=== PATIENT | female | born 1975 | race Caucasian/White ===

== ENCOUNTER 2018-08-17 15:02 | Emergency (ER) | payer BC ==
[~2018-08-17] VITALS: Ht 157.5 cm; Wt 104.3 kg
[~2018-08-17 15:02] MED LIST: ACET-93 PO; ALPR0.5T7 PO; HYDR-3730 PO; LORA10TA7 PO; MTF500T PO; NITR-65 PO; ONDA4TAB8 PO; PANT40TA3 PO; TRAM300T17 PO; TRM50T PO
--- OUTSIDE RECORDS SUMMARY | 2018-08-17 15:07 | XMS REPORT | Clinical Summary ---
Author Author [facility] Organization [facility] Address Unknown Phone Unavailable Care Team Providers Care Boat Cleaner Name Role Phone PCP Unavailable Allergies Not on File Current Medications Not on file Active Problems Not on file Social History Tobacco Use Types Packs/Day Years Used Date Never Assessed Sex Assigned at Date Recorded Not on file Last Filed Vital Signs Not on file Plan of Treatment Not on file Results Not on filefrom Last 3 Months
--- OUTSIDE RECORDS SUMMARY | 2018-08-17 15:07 | XMS REPORT | Clinical Summary ---
Author Author [facility] Organization [facility] Address Unknown Phone Unavailable Care Team Providers Care Pan Tank Worker Name Role Phone Dung Lyn MD Unavailable Katty Tony RN Unavailable Unavailable Eben Irizarry MD PCP Garrett Hammonds RN Unavailable Unavailable Nicole Culp APRN Unavailable Monica Escudero RN Unavailable Unavailable Jennifer Elmore RN Unavailable Unavailable Source Comments Some departments are not documenting in the electronic medical record. If you do not see the information that you expected, contact Release of Information in the Health Information Management department at [phone] for further assistance in locating additional records.[facility] Allergies Comments Active Allergy Reactions Severity Noted Date Penicillins HIVES 02/08/2013 Tramadol SEIZURES 02/08/2013 Medications End Date Status Medication Sig Dispensed Refills Start Date Active metFORMIN (GLUCOPHAGE) Take 500 mg 0 500 mg tablet by mouth twice daily with meals. Active pantoprazole DR Take 40 mg by 0 (PROTONIX) 40 mg tablet mouth every morning. Active simvastatin (ZOCOR) 20 mg Take 20 mg by 0 tablet mouth at bedtime daily. Active acetaminophen (TYLENOL) Take 1,000 mg 0 500 mg tablet by mouth every 6 hours as needed. Active hydrocortisone 1 % Apply to 0 topical ointment affected area twice daily. Rash Active docusate (COLACE) 100 mg Take 1 Cap by 60 Cap 0 capsule mouth twice 4 daily. 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 Last Filed Vital Signs Time Taken Vital Sign Reading 09/03/2014 8:36 AM CDT Blood Pressure 118/78 09/03/2014 8:36 AM CDT Pulse 79 12/30/2013 2:48 PM CDT Temperature 36.9 C (98.4 F) - Respiratory Rate - 12/30/2013 2:48 PM CDT Oxygen Saturation 97% - Inhaled Oxygen - Concentration 09/03/2014 8:36 AM CDT Weight 112.5 kg (248 lb) 09/03/2014 8:36 AM CDT Height 160 cm (5' 3") 09/03/2014 8:36 AM CDT Body Mass Index 43.93 Plan of Treatment Health Maintenance Due Date Last Done Comments PHYSICAL (COMPREHENSIVE) 08/28/1982 EXAM HIV SCREENING 08/28/1990 DTAP/TDAP VACCINES (1 - 08/28/1993 Tdap) CERVICAL CANCER SCREENING 08/28/2005 BREAST CANCER SCREENING 2015 INFLUENZA VACCINE 12/14/2018 Results Not on filefrom Last 3 Months Insurance Type Payer Benefit Subscriber ID Effective Phone Address Plan / Dates Group PPO BCBS GURPREET BCBS GURPREET xxxxxxxxxxxxxxx 2014- [facility] Present BLUE Advance Directives Patient has advance care planning documents, and code status on file. For more information, please contact: [facility] [address] [place] [address] Date Inactivated Comments Code Status Date Activated 12/30/2013 6:21 PM Full Code 12/28/2013 3:55 PM Provider has discussed Code Status Yes w/Patient or Family? 04/02/2013 2:07 PM Full Code 03/30/2013 7:52 PM Provider has discussed Code Status No, discussion not w/Patient or Family? necessary based on Dx
--- OUTSIDE RECORDS SUMMARY | 2018-08-17 15:08 | XMS REPORT | Continuity of Care Document ---
Author Author [facility] Organization [facility] Address Unknown Phone Unavailable Care Team Providers Care Armhole Presser Name Role Phone TIANAED PISANO FLOR PP Insurance Providers Payer Name Policy Number Subscriber Name Relationship [facility] [id number] Michelle Soto 01 Self / Same As Patient Advance Directives Directive Response Recorded Date Advance Directives N 09/09/12 4:57pm Problems No Known Problems or Medical conditions. Social History History Response Recorded Date/Time Alcohol Use Denies Use 09/09/12 4:57pm Recreational Drug Use N 09/09/12 4:57pm Allergies, Adverse Reactions, Alerts Allergen Type Severity Reaction Last Updated Penicillins Allergy RASH 09/09/12 Medications Medication Dose Units Route Sig Qty Days Tramadol HCl (Ultram) 100 Mg PO BID 10 Tramadol Hcl 300 Mg PO Metformin HCl (Metformin 500 Mg) 1 Each PO BID WITH MEALS Response Recorded Date/Time Status not known Unknown Results Test Date Result Interp. Ref. Range Alanine Aminotransferase (ALT/SGPT) September 09, 2012 4:59pm 44 U/L N 30-65 Albumin September 09, 2012 4:59pm 4.2 G/DL N 3.4-5.0 Alkaline Phosphatase September 09, 2012 4:59pm 138 U/L H 50-136 Aspartate Amino Transf (AST/SGOT) September 09, 2012 4:59pm 21 U/L N 15-37 BUN/Creatinine Ratio September 09, 2012 4:59pm 10 - Basophils # (Auto) September 09, 2012 4:59pm 0.0 10^3/uL N 0.0-0.1 Basophils (%) (Auto) September 09, 2012 4:59pm 0 % N 0-10 Blood Urea Nitrogen September 09, 2012 4:59pm 10 MG/DL N 7-18 Calcium Level September 09, 2012 4:59pm 8.5 MG/DL N 8.5-10.1 Carbon Dioxide Level September 09, 2012 4:59pm 21 MMOL/L N 21-32 Chloride Level September 09, 2012 4:59pm 100 MMOL/L L 101-110 Creatinine September 09, 2012 4:59pm 1.0 MG/ DL N 0.6-1.3 Eosinophils # (Auto) September 09, 2012 4:59pm 0.2 10^3/uL N 0.0-0.3 Eosinophils (%) (Auto) September 09, 2012 4:59pm 2 % N 0-10 Glucose Level September 09, 2012 4:59pm 102 MG/DL N 74-106 Hematocrit September 09, 2012 4:59pm 43 % N 35-52 Hemoglobin September 09, 2012 4:59pm 14.1 G/ DL N 11.5-16.0 Lymphocytes # (Auto) September 09, 2012 4:59pm 4.7 X 10^3 H 1.0-4.0 Lymphocytes (%) (Auto) September 09, 2012 4:59pm 47 % H 12-44 Mean Corpuscular Hemoglobin September 09, 2012 4:59pm 28 PG N 25-34 Mean Corpuscular Hemoglobin Concent September 09, 2012 4:59pm 33 G/DL N 32-36 Mean Corpuscular Volume September 09, 2012 4:59pm 84 FL N 80-99 Mean Platelet Volume September 09, 2012 4:59pm 9.4 FL N 7.4-10.4 Monocytes # (Auto) September 09, 2012 4:59pm 0.8 X 10^3 N 0.0-1.0 Monocytes (%) (Auto) September 09, 2012 4:59pm 7 % N 0-12 Neutrophils # (Auto) September 09, 2012 4:59pm 4.4 X 10^3 N 1.8-7.8 Neutrophils (%) (Auto) September 09, 2012 4:59pm 44 % N 42-75 Platelet Count September 09, 2012 4:59pm 457 10^3/uL H 130-400 Potassium Level September 09, 2012 4:59pm 3.8 MMOL/L N 3.6-5.0 Red Blood Count September 09, 2012 4:59pm 5.12 10^6/uL N 4.35-5.85 Red Cell Distribution Width September 09, 2012 4:59pm 13.8 % N 10.0-14.5 Sodium Level September 09, 2012 4:59pm 136 MMOL/L N 135-145 Total Bilirubin September 09, 2012 4:59pm 0.2 MG/DL N 0.0-1.0 Total Protein September 09, 2012 4:59pm 8.3 G/DL H 6.4-8.2 Ur Tricyclic Antidepressants Screen September 09, 2012 7:09pm NEGATIVE - Urine Amphetamines Screen September 09, 2012 7:09pm NEGATIVE - Urine Barbiturates Screen September 09, 2012 7:09pm NEGATIVE - Urine Benzodiazepines Screen September 09, 2012 7:09pm NEGATIVE - Urine Cocaine Screen September 09, 2012 7:09pm NEGATIVE - Urine Methamphetamines Screen September 09, 2012 7:09pm NEGATIVE - Urine Opiates Screen September 09, 2012 7:09pm NEGATIVE - Urine Phencyclidine Screen September 09, 2012 7:09pm NEGATIVE - Urine Propoxyphene Screen September 09, 2012 7:09pm NEGATIVE - White Blood Count September 09, 2012 4:59pm 10.1 10^3/uL N 4.3-11.0 Estimat Glomerular Filtration Rate September 09, 2012 4:59pm > 60 - Urine Oxycodone Screen September 09, 2012 7:09pm NEGATIVE - Urine Methadone Screen September 09, 2012 7:09pm NEGATIVE - Urine Cannabinoids Screen September 09, 2012 7:09pm NEGATIVE - Urine Buprenorphine September 09, 2012 7:09pm NEGATIVE - Encounters Encounter Location Date/Time Departed Emergency Room [facility] 4:53pm
--- OUTSIDE RECORDS SUMMARY | 2018-08-17 15:08 | XMS REPORT | Continuity of Care Document ---
Author Author [facility] Organization [facility] Address Unknown Phone Unavailable Allergies Active Description Code Type Severity Reaction Onset Reported/Identified Relationship to Patient Clinical Status Yes PENICILLINS SEVERE DERMATOLOGICAL - SANTI Yes Penicillins [id number] Drug Allergy Unknown RASH 03/28/2015 Yes tramadol [id number] Drug Allergy Unknown SEIZURE 03/28/2015 Medications Medication Packaging Start Date Stop Date Route Dosage Sig TETANUS,DIPTH,PERT ADULT INJ 0 (ADACEL SYRINGE) ml 07/08/2017 07/08/2017 ONCE&1042 AMOX-CLAV 875/125 TAB 875 MG-125MG (AUGMENTIN) TAB 07/08/2017 07/08/2017 ONCE&1101 KETOROLAC VIAL INJ 60 MG/2CC (TORADOL VIAL) MG 07/08/2017 07/08/2017 ONCE&1201 AMOX-CLAV 875/125 TAB 875 MG-125MG (AUGMENTIN) TAB 07/08/2017 07/18/2017 BID&0800,2000 CEFTRIAXONE INJ 1 GM (ROCEPHIN) GM 08/15/2018 08/15/2018 ONCE&1649 Problems Date Dx Coded Attending Type Code Diagnosis Diagnosed By 03/07/2012 Ot 327.23 09/09/2012 JESSICA SALAZAR, MAYRA Anderson Ot 780.39 03/28/2015 Ot 729.5 03/28/2015 Ot 732.9 04/16/2015 KATIE SALAZAR, SHENA Ot K42.9 04/16/2015 SHENA WILSON MD Ot Z01.812 04/18/2015 SHENA WILSON MD Ot K42.9 04/18/2015 SHENA WILSON MD Ot K42.9 06/17/2015 WENDY MORENO DO Ot K52.9 06/17/2015 WENDY MORENO DO Ot N39.0 05/19/2017 Christiano David 578.0 HEMATEMESIS 05/19/2017 Christiano David W K92.0 HEMATEMESIS 05/19/2017 Christiano David W 578.0 HEMATEMESIS 05/19/2017 Christiano David W 794.8 NONSPECIFIC ABNORMAL RESULTS OF FUNCTION STUDY OF LIVER 05/19/2017 Christiano David W K92.0 HEMATEMESIS 05/19/2017 Christiano David W R94.5 ABNORMAL RESULTS OF LIVER FUNCTION STUDIES 05/19/2017 Christiano David A 578.0 HEMATEMESIS 05/19/2017 Christiano David W 794.8 NONSPECIFIC ABNORMAL RESULTS OF FUNCTION STUDY OF LIVER 05/19/2017 Christiano David A K92.0 HEMATEMESIS 05/19/2017 Christiano David W R94.5 ABNORMAL RESULTS OF LIVER FUNCTION STUDIES 07/08/2017 Raffi Severino 912.8 OTHER AND UNSPECIFIED SUPERFICIAL INJURY OF SHOULDER AND UPPER ARM, WITHOUT MENTION OF INFECTION 07/08/2017 Raffi Severino 923.10 CONTUSION OF FOREARM 07/08/2017 Raffi Severino S40.871A OTHER SUPERFICIAL BITE OF RIGHT UPPER ARM, INITIAL ENCOUNTER 07/08/2017 Raffi Severino S50.12XA CONTUSION OF LEFT FOREARM, INITIAL ENCOUNTER 08/15/2018 Raffi Severino 599.0 URINARY TRACT INFECTION, SITE NOT SPECIFIED 08/15/2018 Raffi Severino N39.0 URINARY TRACT INFECTION, SITE NOT SPECIFIED Procedures There is no data. Results Test Result Range Gamma Glutamyl Transferase - 05/19/17 18:21 GGT 200 U/L 5-40 Direct Bilirubin - 05/19/17 18:21 DBil 0.2 mg/dL 0.0-0.2 Folate - 08/15/18 15:23 Folate 3.30 ng/mL 7.00-31.40 Urine Culture - 08/15/18 15:23 PRELIM CULTURE RESULTS >100,000 Gram Negative Lactose Microbiological Analyst SHELLEY / ID to [id number]>100,000 Group B Strep, SHELLEY/Further ID to Follow CULTURE SOURCE CC Sensi - 08/15/18 15:23 FINAL CULTURE RESULTS Klebsiella pneumoniae (Isolate 1) Ampicillin/Sulbactam >16/8 Ampicillin >16 Amoxicillin/K Clavulanate >16/8 Ceftriaxone <=8 Ciprofloxacin <=1 Nitrofurantoin <=32 Gentamicin >8 Levofloxacin <=2 Trimethoprim/ Sulfamethoxazole >2/38 Tetracycline >8 Amikacin <=16 Aztreonam <=8 Ceftazidime <=1 Ceftazidime/K Clavulanate <=0.25 Cephalothin >16 Cefotaxime <=2 Cefotaxime/K Clavulanate <=0.5 Cefoxitin <=8 Cefazolin >16 Cefepime <=8 Cefuroxime <=4 Ertapenem <=1 Imipenem <=4 Meropenem <=4 Piperacillin/Tazobactam <=16 Piperacillin >64 Tigecycline <=2 Tobramycin 8 Sensi - 08/15/18 15:23 Ampicillin/Sulbactam <=8/4 Ampicillin <=2 Amoxicillin/K Clavulanate <=4/2 Ceftriaxone <=8 Clindamycin <=0.5 Cefoxitin Screen N/R Ciprofloxacin <=1 Daptomycin <=0.5 Erythromycin <=0.5 Nitrofurantoin <=32 Gentamicin N/R Gentamicin Synergy Screen N/R Inducible Clindamycin N/R Levofloxacin <=1 Linezolid <=1 Moxifloxacin <=0.5 Oxacillin <=0.25 Penicillin <=0.03 Rifampin <=1 Streptomycin Synergy N/R Synercid <=0.5 Trimethoprim/ Sulfamethoxazole <=0.5/9.5 Tetracycline >8 Vancomycin 0.5 FINAL CULTURE RESULTS Streptococcus agalactiae (Group B) (Isolate 2 ) Encounters ACCT No. Visit Date/Time Discharge Status Pt. Type Provider Facility Loc./Unit Complaint [id number] 06/16/2015 21:14:00 06/17/2015 01:04:00 DIS Emergency JOSH BROWN WENDY Navarro [facility] ER [id number] 04/01/2015 12:21:00 04/01/2015 23:59:59 CLS Outpatient SHENA WILSON MD [facility] [id number] 03/28/2015 08:06:00 03/28/2015 23:59:59 CLS Outpatient SHENA WILSON MD [facility] PREOP [id number] 09/09/2012 16:53:00 09/09/2012 19:20:00 DIS Emergency JESSICA SALAZAR, MAYRA [facility] ER [id number] 03/06/2012 20:08:00 Document Registration [id number] 01/04/2011 15:31:00 Document Registration [id number] 08/15/2018 14:49:00 08/15/2018 17:27:00 DIS Outpatient [facility] [id number] 07/08/2017 09:20:00 07/08/2017 12:31:00 DIS Outpatient [facility] [place] [id number] 05/19/2017 17:15:00 05/19/2017 20:20:00 DIS Outpatient [facility] ER [id number] 07/08/2017 10:44:06 Document Registration
--- NOTE | 2018-08-17 15:26 | NUR ---
PT WAS SEEN IN [facility] ON TUESDAY SHE SAID THEY BRUSHED OFF LEG PAIN POSS FROM UTI
[2018-08-17 16:03] LABS: BASOPHILS % (AUTO) 0 % (0-10); EOSINOPHILS % (AUTO) 1 % (0-10); HEMATOCRIT 38 % (35-52); HEMOGLOBIN 11.8 G/DL (11.5-16.0); LYMPHOCYTES # (AUTO) 1.4 X 10^3 (1.0-4.0); LYMPHOCYTES % (AUTO) 23 % (12-44); MEAN CORPUSCULAR HEMOGLOBIN 29 PG (25-34); MEAN CORPUSCULAR HGB CONC 32 G/DL (32-36); MEAN CORPUSCULAR VOLUME 93 FL (80-99); MEAN PLATELET VOLUME 9.1 FL (7.4-10.4); MONOCYTES # (AUTO) 0.3 X 10^3 (0.0-1.0); MONOCYTES % (AUTO) 5 % (0-12); NEUTROPHILS # (AUTO) 4.2 X 10^3 (1.8-7.8); NEUTROPHILS % (AUTO) 71 % (42-75); PLATELET COUNT 274 10^3/uL (130-400); RED CELL DISTRIBUTION WIDTH 22.2 % (10.0-14.5); WHITE BLOOD COUNT 5.9 10^3/uL (4.3-11.0)
[2018-08-17] MEDS ORDERED: NS IV 1000 ML 1,000 ML IV ONE (16:08)
[2018-08-17 16:15] LABS: CLARITY,URINE SLIGHTLY CLOUDY; COLOR,URINE AMBER; GLUCOSE, URINE (UA) NEGATIVE (NEGATIVE); KETONES,URINE 1+ (NEGATIVE); LEUKOCYTE ESTERASE ,URINE 1+ (NEGATIVE); NITRITE,URINE POSITIVE (NEGATIVE); PH,URINE 5 (5-9); PROTEIN,URINE 2+ (NEGATIVE); UROBILINOGEN,URINE 4 MG/DL (NORMAL)
[2018-08-17 16:30] LABS: ALANINE AMINOTRANSFERASE 20 U/L (0-55); ALBUMIN 3.9 GM/DL (3.2-4.5); ALKALINE PHOSPHATASE 121 U/L (40-136); BILIRUBIN,TOTAL 0.4 MG/DL (0.1-1.0); BUN/CREATININE RATIO 14; CALCIUM 9.6 MG/DL (8.5-10.1); CARBON DIOXIDE 22 MMOL/L (21-32); CHLORIDE 104 MMOL/L (98-107); CREATININE SERUM 0.57 MG/DL (0.60-1.30); GFR ESTIMATED > 60; GLUCOSE 117 MG/DL (70-105); POTASSIUM 3.6 MMOL/L (3.6-5.0); SODIUM 138 MMOL/L (135-145); TOTAL PROTEIN 7.2 GM/DL (6.4-8.2)
[2018-08-17 16:35] LABS: BACTERIA,URINE TRACE /HPF; BILIRUBIN,URINE 1+ (NEGATIVE)
--- NOTE | 2018-08-17 16:39 | ED Lower Extremity ---
General Chief Complaint: Lower Extremity Stated Complaint: LEG PAIN Nursing Triage Note: PT CO OF LOWER EXT PAIN RATES 11/22 STARTED ON TUESDAY, HAS BEEN WALKING W WALKER. PT IS ON ANTIBIOTIC FOR UTI. Nursing Sepsis Screen: No Definite Risk Source: patient Exam Limitations: no limitations History of Present Illness Date Seen by Provider: Aug 17, 2018 Time Seen by Provider: 15:48 Initial Comments Here with increasing redness and pain to bilateral lower extremities. She states that her legs are increasingly weak and now she is having to use her walker. She was seen in [place] 4 days ago and diagnosed with urinary tract infection. She is on Macrobid currently. Denies nausea or vomiting. Denies numbness between her legs. Denies fever or chills. Denies bowel or bladder incontinence. Does have history of low back problems and has had sciatica that usually involves the left side. Onset: last week Severity: moderate Pain/Injury Location: bilateral leg, bilateral foot, bilateral ankle Method of Injury: unknown Modifying Factors: Worse With Movement; Improves With Rest Allergies and Home Medications Allergies Coded Allergies: Penicillins (Verified Allergy, Unknown, RASH, 03/28/15) tramadol (Verified Allergy, Unknown, SEIZURE, 03/28/15) Home Medications Acetaminophen 500 Mg Tablet, 500 MG PO TID, (Reported) Loratadine 10 Mg Tablet, 10 MG PO DAILY, (Reported) Nitrofurantoin Monohyd/M-Cryst 100 Mg Capsule, 100 MG PO BID Prescribed by: WENDY MORENO on 06/17/1537 Ondansetron 4 Mg Tab.rapdis, 4 MG PO Q4H Prescribed by: WENDY MORENO on 06/17/1537 Pantoprazole Sodium 40 Mg Tablet.dr, 40 MG PO DAILY, (Reported) Patient Home Medication List Home Medication List Reviewed: Yes Review of Systems Constitutional: see HPI; No chills, No fever; weakness EENTM: no symptoms reported Respiratory: no symptoms reported Cardiovascular: no symptoms reported Gastrointestinal: No nausea, No vomiting Genitourinary: no symptoms reported Musculoskeletal: see HPI, muscle pain, muscle weakness Skin: no symptoms reported All Other Systems Reviewed Negative Unless Noted: Yes Past Eqqlvha-Hunpqm-Jhomgq Hx Past Med/Social Hx: Reviewed Nursing Past Med/Soc Hx Patient Social History Alcohol Use: Denies Use Recreational Drug Use: No Smoking Status: Never a Smoker Recent Foreign Travel: No Contact w/Someone Who Travel: No Recent Infectious Disease Expo: No Recent Hopitalizations: No Seasonal Allergies Seasonal Allergies: Yes Past Medical History Surgeries: Yes (bilat knee scope, L ankle x7 total & bone growth stimulator in ankle,HERNIA) Abdominal, Orthopedic Respiratory: No Cardiac: Yes High Cholesterol Neurological: Yes (had a seizure ruled as allergic reaction to tramadol, ) Last Menstrual Period: Feb 16, 2018 Reproductive Disorders: No STORE MERCHANDISER History: Menopausal Gastrointestinal: Yes Gastroesophageal Reflux, Ulcer Musculoskeletal: Yes (left ankle arthritis-several sx ) Endocrine: Yes Diabetes, Non-Insulin dep Cancer: No Psychosocial: Yes Anxiety Integumentary: No Blood Disorders: Yes (ANEMIA) Family Medical History Reviewed Nursing Family Hx Physical Exam Vital Signs Vital Signs - First Documented 08/17/18 15:10 Temp 98.1 Pulse 90 Resp 18 B/P (MAP) 124/83 (97) Capillary Refill : Less Than 3 Seconds Height, Weight, BMI Height: 5'2.00" Weight: 230lbs. oz. 104.601940hy; BMI Method:Stated General Appearance: WD/WN, no apparent distress HEENT: PERRL/EOMI, pharynx normal Neck: full range of motion, supple Cardiovascular: regular rate, rhythm, no murmur Respiratory: lungs clear, normal breath sounds Gastrointestinal: non tender, soft Back: normal inspection, no CVA tenderness, no vertebral tenderness Legs: bilateral leg soft tissue tenderness, bilateral leg swelling (1+ edema up to mid tibia) Ankles: bilateral ankle soft tissue tenderness Feet: bilateral foot soft tissue tenderness Neurologic/Tendon: normal motor functions, sensory deficit (decreased sensation bilateral lower extremities from the mid tib-fib region down to her feet.) Neurologic/Psychiatric: alert, oriented x 3 Skin: normal color, warm/dry Progress/Results/Core Measures Results/Orders Lab Results Laboratory Tests Test 08/17/18 15:55 08/17/18 16:07 Range/Units White Blood Count 5.9 4.3-11.0 10^3/uL Red Blood Count 4.02 L 4.35-5.85 10^6/uL Hemoglobin 11.8 11.5-16.0 G/DL Hematocrit 38 35-52 % Mean Corpuscular Volume 93 80-99 FL Mean Corpuscular Hemoglobin 29 25-34 PG Mean Corpuscular Hemoglobin Concent 32 32-36 G/DL Red Cell Distribution Width 22.2 H 10.0-14.5 % Platelet Count 274 130-400 10^3/uL Mean Platelet Volume 9.1 7.4-10.4 FL Neutrophils (%) (Auto) 71 42-75 % Lymphocytes (%) (Auto) 23 12-44 % Monocytes (%) (Auto) 5 0-12 % Eosinophils (%) (Auto) 1 0-10 % Basophils (%) (Auto) 0 0-10 % Neutrophils # (Auto) 4.2 1.8-7.8 X 10^3 Lymphocytes # (Auto) 1.4 1.0-4.0 X 10^3 Monocytes # (Auto) 0.3 0.0-1.0 X 10^3 Eosinophils # (Auto) 0.0 0.0-0.3 10^3/uL Basophils # (Auto) 0.0 0.0-0.1 10^3/uL Sodium Level 138 135-145 MMOL/L Potassium Level 3.6 3.6-5.0 MMOL/L Chloride Level 104 98-107 MMOL/L Carbon Dioxide Level 22 21-32 MMOL/L Anion Gap 12 5-14 MMOL/L Blood Urea Nitrogen 8 7-18 MG/DL Creatinine 0.57 L 0.60-1.30 MG/DL Estimat Glomerular Filtration Rate > 60 BUN/Creatinine Ratio 14 Glucose Level 117 H 70-105 MG/DL Calcium Level 9.6 8.5-10.1 MG/DL Corrected Calcium 9.7 8.5-10.1 MG/DL Magnesium Level 2.0 1.8-2.4 MG/DL Total Bilirubin 0.4 0.1-1.0 MG/DL Aspartate Amino Transf (AST/SGOT) 58 H 5-34 U/L Alanine Aminotransferase (ALT/SGPT) 20 0-55 U/L Alkaline Phosphatase 121 40-136 U/L Total Creatine Kinase 16 L 29-168 U/L Myoglobin 13.3 10.0-92.0 NG/ML C-Reactive Protein High Sensitivity 2.44 H 0.00-0.50 MG/DL Total Protein 7.2 6.4-8.2 GM/DL Albumin 3.9 3.2-4.5 GM/DL Urine Color TOÑA H Urine Clarity SLIGHTLY CLOUDY Urine pH 5 5-9 Urine Specific [place] 1.020 1.016-1.022 Urine Protein 2+ H NEGATIVE Urine Glucose (UA) NEGATIVE NEGATIVE Urine Ketones 1+ H NEGATIVE Urine Nitrite POSITIVE H NEGATIVE Urine Bilirubin 1+ H NEGATIVE Urine Urobilinogen 4 H NORMAL MG/DL Urine Leukocyte Esterase 1+ H NEGATIVE Urine RBC (Auto) 1+ H NEGATIVE Urine RBC NONE /HPF Urine WBC 2-5 /HPF Urine Squamous Epithelial Cells 10-25 H /HPF Urine Crystals NONE /LPF Urine Bacteria TRACE /HPF Urine Casts NONE /LPF Urine Mucus NEGATIVE /LPF Urine Culture Indicated NO Urine Test NEGATIVE NEGATIVE My Orders Orders - NICKOLAS MENDOZA MD Cbc With Automated Diff (08/17/18 15:51) Comprehensive Metabolic Panel (08/17/18 15:51) Hs C Reactive Protein (08/17/18 15:51) Magnesium (08/17/18 15:51) Ua Culture If Indicated (08/17/18 15:51) Ct Lumbar Spine Wo (08/17/18 15:51) Saline Lock/Iv-Start (08/17/18 15:51) Urine Bedside (08/17/18 15:51) Saline Lock/Iv-Start (08/17/18 16:08) Ns Iv 1000 Ml (Sodium Chloride 0.9%) (08/17/18 16:08) Hcg,Qualitative Urine (08/17/18 16:11) Medications Given in ED Current Medications Medications Dose Ordered Sig/Brittnee Route Start Time Stop Time Status Last Admin Dose Admin Sodium Chloride 1,000 ml @ 0 mls/hr Q0M ONCE IV 08/17/18 16:08 08/17/18 16:09 DC 08/17/18 16:17 1,000 MLS/HR Vital Signs/I&O 08/17/18 15:10 Temp 98.1 Pulse 90 Resp 18 B/P (MAP) 124/83 (97) Blood Pressure Mean: 97 Progress Progress Note : Progress Note Seen and evaluated. IV, labs, UA ordered. UA very dark. Total CK and myoglobin ordered. Normal saline 1 L bolus. Monitor patient. We will get CT of the lumbar spine. Monitor patient. 1735: CT results noted. We will initiate outpatient steroids. Patient will need follow-up with a back surgeon. I did give her 2 names and she will call in the morning for follow-up appointment. Return precautions given. Discharge home with return precautions. Patient verbalize understanding instructions and agreement with plan. Departure Impression Primary Impression: Lumbar radiculopathy, acute Additional Impression: UTI (urinary tract infection) Qualified Codes: N30.00 - Acute cystitis without hematuria Disposition: HOME, SELF-CARE Condition: Stable Departure-Patient Inst. Decision time for Depature: 17:50 Referrals: ADALI CRUZ BRIAN J MD SCHOELING, RICK D MD (PCP/Family) Primary Care Physician Patient Instructions: Low Back Pain (DC), Radiculopathy (DC) Add. Discharge Instructions: All discharge instructions reviewed with patient and/or family. Voiced understanding. You need to call Dr. Cruz and/or Dr. CHRISTIANSON's office in the morning for appointment and further evaluation regarding her lumbar spine problems in the L4 to S1 region. Take medications as directed. Follow-up with your doctor for recheck and further evaluation. Return for worse pain, fever, vomiting, weakness , problems walking or going to the bathroom, numbness between your legs or other concerns as needed. You may take Tylenol/acetaminophen 1000 mg every 8 hours as needed for pain. You may take ibuprofen 600 mg every 8 hours as needed for pain. Drink plenty of fluids. If your urinary tract infection is not being treated with the antibiotic that she were on, you will be called for change of antibiotics. Scripts Prednisone (Prednisone) 20 Mg Tab 40 MG PO DAILY, #14 TAB 0 Refills Prov: NICKOLAS MENDOZA MD 08/17/18 NICKOLAS MENDOZA MD Aug 17, 2018 16:39
--- NOTE | 2018-08-17 17:12 | Diagnostic Imaging Report ---
PROCEDURE: CT lumbar spine without contrast. TECHNIQUE: Multiple contiguous axial images were obtained through the lumbar spine without the use of intravenous contrast. Sagittal and coronal reformations were then performed. Auto Exposure Controls were utilized during the CT exam to meet ALARA standards for radiation dose reduction. INDICATION: Degenerative disc disease. Back pain radiating to both legs. There is normal height and alignment of the lumbar vertebral bodies. The upper level shows mild degenerative disc and facet disease with no disc herniation or bony stenosis. At L4-L5, there is near complete loss of the disc with vacuum disc present. There is spondylosis. There are degenerated facets. This is causing some bilateral lateral recess narrowing as well as some mild right foraminal narrowing. The focal disc herniation is not seen. At L5-S1, there is near complete loss of disc with bulging of residual disc and spondylosis causing some bilateral lateral recess narrowing and mild bilateral foraminal narrowing. There is no mass or acute bony abnormality at any level. IMPRESSION: There is degenerative disc and facet disease at L4-L5 and L5-S1 as described. No acute abnormality is seen. Dictated by: Dictated on workstation # [id number]
[2018-08-17] MEDS ORDERED: PRD20T PO (17:53)
[2018-08-17] MEDS ORDERED: ACHD5005 PO (17:56)
[2018-08-17] MEDS ORDERED: KETOROLAC 30 MG/ML VIAL ONE (17:58)
[2018-08-17 18:06] VITALS: BP 124/83
== END 2018-08-17 18:06 | disposition home or self-care (01) ==
LOC: EDUNIT# 15:02 → ER 15:03
DX: M54.16 Radiculopathy, lumbar region (principal); N39.0 Urinary tract infection, site not specified; K21.9 Gastro-esophageal reflux disease without esophagitis; E78.00 Pure hypercholesterolemia, unspecified; E11.9 Type 2 diabetes mellitus without complications; F41.9 Anxiety disorder, unspecified; D64.9 Anemia, unspecified; Z98.890 Other specified postprocedural states; Z87.19 Personal history of other diseases of the digestive system; Z88.0 Allergy status to penicillin; Z88.6 Allergy status to analgesic agent
CPT/HCPCS: 36415; 72131; 80053; 81000; 82550; 83735; 83874; 84703; 85025; 86141

== ENCOUNTER → 2018-08-31 | Outpatient (CLI) | payer BC ==
[~2018-08-31] MED LIST changes: +ACHD5005 PO; +PRD20T PO
--- NOTE | 2018-08-31 11:36 | Diagnostic Imaging Report ---
PROCEDURE: CT cervical spine without contrast. TECHNIQUE: Multiple contiguous axial images were obtained through the cervical spine without the use of intravenous contrast. Sagittal and coronal reformations were then performed. Auto Exposure Controls were utilized during the CT exam to meet ALARA standards for radiation dose reduction. INDICATION: Neck pain with numbness in the fingers. COMPARISON: No prior studies are available for comparison. FINDINGS: Curvature and alignment of the cervical spine is normal. No fracture or subluxation is seen. There is generalized degenerative disc disease with mild disc space narrowing and marginal spurring. Prevertebral tissues are normal. Odontoid is intact. Mild generalized facet arthropathy is also noted. IMPRESSION: Mild generalized cervical spondylosis. No acute bony abnormality is detected. Dictated by: Dictated on workstation # [id number]
== END ==
LOC: RAD 09:01
PROVIDERS: ATTEND Physician Assistant
DX: M47.812 Spondylosis without myelopathy or radiculopathy, cervical region (principal)
CPT/HCPCS: 72125

== ENCOUNTER 2018-09-19 12:15 | Emergency (ER) | payer BC ==
[~2018-09-19] VITALS: Ht 160 cm; Wt 99.8 kg
--- NOTE | 2018-09-19 13:25 | Diagnostic Imaging Report ---
INDICATION: Fall with right foot pain. AP, oblique, lateral views of the right foot are obtained. No fracture or acute bony abnormality is seen. IMPRESSION: Negative right foot. Dictated by: Dictated on workstation # [id number]
--- NOTE | 2018-09-19 13:37 | ED Lower Extremity ---
General Chief Complaint: Lower Extremity Stated Complaint: R FOOT INJ Nursing Triage Note: FELL 2 WEEKS AGO. RIGHT FOOT PAIN Nursing Sepsis Screen: No Definite Risk History of Present Illness Date Seen by Provider: September 19, 2018 Time Seen by Provider: 12:45 Initial Comments 43-year-old female presents for right foot pain. She states approximately 2 weeks ago she fell in her bathroom due to her right leg giving out from back pain, her right foot twisted and landed under her cabinets. She was evaluated and is awaiting neurology consult for back and radicular s/s. Pain/Injury Location: right foot Method of Injury: fell Allergies and Home Medications Allergies Coded Allergies: Penicillins (Verified Allergy, Unknown, RASH, 03/28/15) tramadol (Verified Allergy, Unknown, SEIZURE, 03/28/15) Home Medications Acetaminophen 500 Mg Tablet, 500 MG PO TID, (Reported) Hydrocodone Bit/Acetaminophen 1 Tab Tab, 1 EACH PO Q4-6HR PRN for PAIN-MODERATE Prescribed by: NICKOLAS MENDOZA on 08/17/181755 Loratadine 10 Mg Tablet, 10 MG PO DAILY, (Reported) Nitrofurantoin Monohyd/M-Cryst 100 Mg Capsule, 100 MG PO BID Prescribed by: WENDY MORENO on 06/17/1537 Ondansetron 4 Mg Tab.rapdis, 4 MG PO Q4H Prescribed by: WENDY MORENO on 06/17/1537 Pantoprazole Sodium 40 Mg Tablet.dr, 40 MG PO DAILY, (Reported) Prednisone 20 Mg Tab, 40 MG PO DAILY Prescribed by: NICKOLAS MENDOZA on 08/17/181752 Patient Home Medication List Home Medication List Reviewed: Yes Review of Systems Constitutional: no symptoms reported, see HPI Musculoskeletal: see HPI, joint pain (metatarsal pain, right foot) All Other Systems Reviewed Negative Unless Noted: Yes Past Oxnuqob-Zbhrjm-Bwcpqr Hx Past Med/Social Hx: Reviewed Nursing Past Med/Soc Hx Patient Social History Alcohol Use: Rarely Uses Recreational Drug Use: No Smoking Status: Never a Smoker 2nd Hand Smoke Exposure: No Recent Foreign Travel: No Contact w/Someone Who Travel: No Recent Infectious Disease Expo: No Recent Hopitalizations: No Physical Abuse: No Sexual Abuse: No Mistreated: No Fear: No Seasonal Allergies Seasonal Allergies: Yes Past Medical History Surgeries: Yes (bilat knee scope, L ankle x7 total & bone growth stimulator in ankle,HERNIA) Abdominal, Orthopedic Respiratory: No Cardiac: Yes High Cholesterol Neurological: Yes (had a seizure ruled as allergic reaction to tramadol, ) Reproductive Disorders: No CHANNEL DEVELOPMENT MANAGER History: Menopausal Genitourinary: No Gastrointestinal: Yes Gastroesophageal Reflux, Ulcer Musculoskeletal: Yes (left ankle arthritis-several sx ) Endocrine: Yes Diabetes, Non-Insulin dep HEENT: No Cancer: No Psychosocial: Yes Anxiety Integumentary: No Blood Disorders: Yes (ANEMIA) Physical Exam Vital Signs Vital Signs - First Documented 09/19/18 12:41 Temp 98.2 Pulse 74 Resp 12 B/P (MAP) 123/83 (96) Pulse Ox 98 O2 Delivery Room Air Capillary Refill : Less Than 3 Seconds Height, Weight, BMI Height: 5'3.00" Weight: 220lbs. oz. 99.457120vh; BMI Method:Stated General Appearance: WD/WN, no apparent distress Cardiovascular: normal peripheral pulses, regular rate, rhythm Respiratory: chest non-tender, lungs clear, normal breath sounds Feet: right foot normal range of motion, right foot no evidence of injury, right foot abrasions/lacerations (healing abrasion to plantar surface at the fourth metatarsal), right foot bone tenderness (second and third metatarsal), right foot pain, right foot soft tissue tenderness Neurologic/Psychiatric: no motor/sensory deficits, alert, normal mood/affect, oriented x 3 Progress/Results/Core Measures Results/Orders My Orders Orders - THEODORE FALLON Foot, Right, 3 View (09/19/18 12:43) Vital Signs/I&O 09/19/18 09/19/18 12:41 13:51 Temp 98.2 Pulse 74 76 Resp 12 18 B/P (MAP) 123/83 (96) 123/83 (96) Pulse Ox 98 99 O2 Delivery Room Air Blood Pressure Mean: 96 Diagnostic Imaging Diagonstic Imaging: Xray Plain Films/CT/US/NM/MRI: other (foot) Comments NAME: CHARLESKENNETHCALEB Bernal MED REC#: [id number] PT STATUS: REG ER : 1975 PHYSICIAN: THEODORE FALLON ADMIT DATE: 09/19/18/ER Draft Date of Exam:09/19/18 FOOT, RIGHT, 3 VIEW INDICATION: Fall with right foot pain. AP, oblique, lateral views of the right foot are obtained. No fracture or acute bony abnormality is seen. IMPRESSION: Negative right foot. Dictated on workstation # [id number] Dict: 09/19/18 1321 Trans: 09/19/18 1325 [facility] [id number] Interpreted by: JAYDE HATHAWAY MD Electronically signed by: Reviewed: Reviewed by Me Departure Impression Primary Impression: Foot pain, right Disposition: 01 HOME, SELF-CARE Condition: Improved Departure-Patient Inst. Decision time for Depature: 13:45 Referrals: NO,LOCAL PHYSICIAN (PCP/Family) Primary Care Physician Patient Instructions: Sprain (DC) Add. Discharge Instructions: Continue to use walker at all times for ambulation. Use Solomon wrap to right foot. Apply ice to right foot 20 minutes every 2 hours while awake. Continuing management for your low back problems. Follow-up with your primary care provider if symptoms are not improving or worsen, [facility] has a walk in clinic. Return to emergency department for new, urgent health care needs. All discharge instructions reviewed with patient and/or family. Voiced understanding. THEODORE FALLON September 19, 2018 13:37
[2018-09-19 13:51] VITALS: BP 123/83
== END 2018-09-19 13:51 | disposition home or self-care (01) ==
LOC: EDUNIT# 12:15 → ER 12:16
DX: M79.671 Pain in right foot (principal); E78.00 Pure hypercholesterolemia, unspecified; K21.9 Gastro-esophageal reflux disease without esophagitis; E11.9 Type 2 diabetes mellitus without complications; F41.9 Anxiety disorder, unspecified; D64.9 Anemia, unspecified; Z87.19 Personal history of other diseases of the digestive system; Z88.0 Allergy status to penicillin; Z88.6 Allergy status to analgesic agent; Z79.52 Long term (current) use of systemic steroids; X50.1XXA Overexertion from prolonged static or awkward postures, initial encounter; W18.30XA Fall on same level, unspecified, initial encounter; Y92.002 Bathroom of unspecified non-institutional (private) residence as the place of occurrence of the external cause
CPT/HCPCS: 73630